=== PATIENT | female | born 1955 | race Caucasian/White ===

== ENCOUNTER → 2017-01-24 | Outpatient (CLI) | payer BC ==
--- NOTE | 2017-01-24 08:53 | BD ---
EXAMINATION TYPE: MG DEXA axial skeleton. DATE OF EXAM: 01/24/2017 COMPARISON: NONE CLINICAL HISTORY: Postmenopausal female. Height: 5 FT 6 1/2 IN Weight: 171 FRAX RISK QUESTIONS: Alcohol (3 or more units per day): NO Family History (Parent hip fracture): NO Glucocorticoids (More than 3mos): NO (Ex: prednisone, prednisolone, methylprednisolone, dexamethasone, and hydrocortisone). History of Fracture in Adulthood: NO Secondary Osteoporosis: 1. Type 1 Diabetes: NO 2. Hyperthyroidism: NO 3. Menopause before 45: NO 4. Malnutrition: NO 5. Chronic liver disease: NO Rheumatoid Arthritis: NO Current Tobacco Use: NO RISK FACTORS HISTORY OF: Active: NO Postmenopausal woman: PART HYST AGE 33 MEDICATIONS: Thyroid Medications: YES Which medication: SYNTHROID How Lon YEARS Additional Medications: SYNTHROID, TRIAMTERENE,PROBIOTIC, VIT D3, VIT B, OMEPRAZOLE, SIMVASTATIN, ASP IRIN, ALPRAZOLAM Additional History: EXAM MEASUREMENTS: Bone mineral densitometry was performed using the [employer] System. Bone mineral density as measured about the Lumbar spine is: ----- L1-L4(G/cm2): 1.079 T Score Values are as follows: ----- L2: -1.1 ----- L3: 0.0 ----- L4: -0.7 ----- L1-L4: -0.8 BASELINE Bone mineral density about the R hip (g/cm2): 0.876 Bone mineral density about the L hip (g/cm2): 0.865 T Score values are as follows: -----R Neck: -1.2 -----L Neck: -1.2 -----R Total: -0.6 -----L Total: -0.6 BASELINE IMPRESSION: OSTEOPENIA. NOTE: T-SCORE=SD OF THE YOUNG ADULT MEAN.
--- NOTE | 2017-01-26 12:18 | MM ---
Reason for exam: screening (asymptomatic). Last mammogram was performed 3 years ago. History: Patient is postmenopausal. Benign ultrasound-guided core biopsy of the left breast, March 31, 2004. Took hormonal contraceptives for 5 years beginning at age 18. Physical Findings: A clinical breast exam by your physician is recommended on an annual basis and results should be correlated with mammographic findings. MG 3D Screening Mammo W/Cad Bilateral CC and MLO view(s) were taken. Prior study comparison: February 06, 2014, right breast MG work up mamm w CAD RT. February 04, 2014, bilateral MG screening mammo w CAD. No suspicious abnormality. Post biopsy change in the left breast. No significant changes when compared with prior studies. ASSESSMENT: Benign, BI-RAD 2 RECOMMENDATION: Routine screening mammogram of both breasts in 1 year.
== END | disposition home or self-care (01) ==
LOC: RADMAMWWP 06:54
PROVIDERS: ATTEND Obstetrics & Gynecology
DX: Z12.31 Encounter for screening mammogram for malignant neoplasm of breast (principal); M85.88 Other specified disorders of bone density and structure, other site
CPT/HCPCS: 77080; 77063; G0202

== ENCOUNTER → 2017-01-27 | Outpatient (CLI) | payer BC ==
[2017-01-27 07:51] LABS: EKG EKG PERFORMED
[2017-01-27 08:02] LABS: Basophils # (A) 0.1 k/uL (0-0.2); Basophils % (A) 1 %; CH 31.8; Eosinophils # (A) 0.3 k/uL (0-0.7); Eosinophils % (A) 7 %; HDW 2.29; HGB 14.5 gm/dL (11.4-16.0); Luc # (Auto) 0.12; Luc % (Auto) 2; Lymphocytes # (A) 0.9 k/uL (1.0-4.8); Lymphocytes % (A) 18 %; MCV 93.9 fL (80.0-100.0); Monocytes # (A) 0.4 k/uL (0-1.0); Monocytes % (A) 7 %; Neutrophils # (A) 3.2 k/uL (1.3-7.7); Neutrophils % (A) 65 %; RBC 4.68 m/uL (3.80-5.40); RDW 13.6 % (11.5-15.5)
[2017-01-27 08:34] LABS: Anion Gap 9 mmol/L; Blood Urea Nitrogen 16 mg/dL (7-17); Calcium 9.3 mg/dL (8.4-10.2); Carbon Dioxide 28 mmol/L (22-30); Chloride 103 mmol/L (98-107); Glucose 66 mg/dL (74-99); Non-African American GFR(MDRD) 47 (>60 ml/min/1.73 sqM); Sodium 140 mmol/L (137-145)
== END | disposition home or self-care (01) ==
LOC: LABPAT 07:28
PROVIDERS: ATTEND Obstetrics & Gynecology
DX: Z01.810 Encounter for preprocedural cardiovascular examination (principal); Z01.812 Encounter for preprocedural laboratory examination
CPT/HCPCS: 80048; 85025; 86850; 86900; 86901; 93005

== ENCOUNTER 2017-02-07 05:55 | Observation (INO) | payer BC ==
[2017-02-01 11:21] VITALS: BMI 27.3
--- NOTE | 2017-02-06 17:31 | P.HPOB ---
History of Present Illness H&P Date: 02/06/17 Chief Complaint: Rectocele This is a 61-year-old female 4 para 3 who presents for posterior vaginal colporrhaphy secondary to rectocele. Her symptoms have gradually worsened over the last 20 years. She complains of a vaginal mass and perineal pressure along with pelvic pain, dyspareunia, and slight urinary incontinence. She denies any constipation. Her symptoms are aggravated by heavy lifting, prolonged standing, and physical activity. She would like definitive surgical treatment to repair this problem. Obstetrical history: . History of 3 vaginal deliveries. Gynecologic history: No history of sexual transmitted diseases. Social history: She is . She works full-time at an [employer]. Review of Systems Constitutional: Denies chills, Denies fever Eyes: denies blurred vision, denies pain Ears, nose, mouth and throat: Denies headache, Denies sore throat Cardiovascular: Denies chest pain, Denies shortness of breath Respiratory: Reports cough Gastrointestinal: Reports heartburn Genitourinary: Reports pelvic pain, Reports prolapse symptoms Musculoskeletal: Denies myalgias Integumentary: Denies pruritus, Denies rash Neurological: Denies numbness, Denies weakness Psychiatric: Reports anxiety, Denies depression Endocrine: Denies fatigue, Denies weight change Past Medical History Past Medical History: GERD/Reflux, Hyperlipidemia, Thyroid Disorder Additional Past Medical History / Comment(s): Tinnitus, hyperlipidemia History of Any Multi-Drug Resistant Organisms: None Reported Past Surgical History: Breast Surgery, Hysterectomy (Vaginal hysterectomy with anterior bladder suspension) Additional Past Surgical History / Comment(s): surgery for varicose veins-rt leg , left breast biopsy, D&C Past Anesthesia/Blood Transfusion Reactions: No Reported Reaction Past Psychological History: Anxiety Smoking Status: Former smoker Past Alcohol Use History: Daily (One glass of wine daily) Past Drug Use History: None Reported - Past Family History Mother Family Medical History: Cancer (Hodgkin's lymphoma) Additional Family Medical History / Comment(s): Heart disease Sister(s) Family Medical History: Deep Vein Thrombosis (DVT) Medications and Allergies Home Medications Medication Instructions Recorded Confirmed Type ALPRAZolam [Xanax] 0.25 mg PO DAILY PRN 02/01/17 02/01/17 History Aspirin [Adult Low Dose Aspirin EC] 81 mg PO DAILY 02/01/17 02/01/17 History L.acidoph,Paracasei, B.lactis 1 each PO DAILY 02/01/17 02/01/17 History [Probiotic] Levothyroxine Sodium [Synthroid] 75 mcg PO DAILY 02/01/17 02/01/17 History [facility] 1 tab PO HS 02/01/17 02/01/17 History Multivitamins, Thera [Multivitamin 1 tab PO DAILY 02/01/17 02/01/17 History (formulary)] Simvastatin [Zocor] 40 mg PO HS 02/01/17 02/01/17 History Triamterene-Hctz 37.5-25Mg 1 cap PO DAILY 02/01/17 02/01/17 History [Dyazide 37.5-25 Capsule] Allergies Allergy/AdvReac Type Severity Reaction Status Date / Time No Known Allergies Allergy Verified 02/01/17 11:08 Exam Osteopathic Statement: *. No significant issues noted on an osteopathic structural exam other than those noted in the History and Physical/Consult. HEENT: Within normal limits Heart: Regular rate and rhythm Lungs: Clear to auscultation bilaterally Abdomen: Soft, nontender Pelvic exam: Third degree rectocele is noted. No adnexal masses or tenderness are palpated. Extremities: Negative Homans Assessment and Plan (1) Rectocele Status: Acute Plan: Proceed with posterior vaginal colporrhaphy. I have discussed the risks, benefits, and alternative therapies for the above- mentioned procedure and for both sedation/anesthesia as well as necessary blood products administration, if indicated, as they pertain to this patient. The patient has indicated her understanding and acceptance of the risks and procedures discussed.
[~2017-02-07 05:55] MED LIST: DEXAMETHASONE SOD PHOSPHATE 10 MG/ML 1 ML VIAL IV ONE; HYDROmorphone 1 MG/ML 1 ML SYRINGE IVP PRN; LACTATED RINGERS 1,000 ML IV SCH; MIDAZOLAM 2 MG/2 ML VIAL IV PRN; ONDANSETRON 4 MG/2 ML VIAL IVP ONE; SCOPOLAMINE 1.5MG/72HR PATCH TRANSDERM ONE; ceFAZolin 2 GM in SODIUM CHLORIDE 0.9% 100 ML IVPB ONE
[2017-02-07] MEDS ORDERED: LACTATED RINGERS 1,000 ML IV ONE (06:11)
[2017-02-07] MEDS ORDERED: LIDOCAINE 1% 20 ML VIAL (10MG/ML) FOR IV START INTRADERMA ONE (06:11)
[2017-02-07] MEDS ORDERED: fentaNYL (PF) 50 MCG/ML 2 ML AMP ONE (07:37)
[2017-02-07] MEDS ORDERED: PROPOFOL 10 MG/ML 20 ML VIAL IV ONE (07:37)
[2017-02-07] MEDS ORDERED: MIDAZOLAM 2 MG/2 ML VIAL ONE (07:37)
[2017-02-07] MEDS ORDERED: KETOROLAC 30 MG/ML 1 ML VIAL IVP PRN (07:49)
[2017-02-07] MEDS ORDERED: ONDANSETRON 4 MG/2 ML VIAL IVP PRN ×2 (07:49→09:50)
[2017-02-07] MEDS ORDERED: NALOXONE 0.4 MG/ML 1 ML VIAL IV PRN (07:49)
[2017-02-07] MEDS ORDERED: NALBUPHINE 10 MG/ML AMPUL IV PRN (07:49)
[2017-02-07] MEDS ORDERED: diphenhydrAMINE 50 MG/ML 1 ML VIAL IVP PRN ×2 (07:49→09:50)
[2017-02-07] MEDS ORDERED: EPINEPHrine 1 MG/ML 1 ML AMP SQ ONE (07:58)
[2017-02-07] MEDS ORDERED: BACITRACIN 500 UNIT/GM OINT 28.4 GM TUBE TOPICAL ONE (07:58)
--- NOTE | 2017-02-07 08:15 | P.OP ---
Date of Procedure: 02/07/17 Preoperative Diagnosis: Rectocele Postoperative Diagnosis: Same Procedure(s) Performed: Posterior vaginal colporrhaphy Implants: Anesthesia: spinal (Duramorph) Surgeon: Shy Moulton Director Of Assessing #1: Mark Ivy Estimated Blood Loss (ml): 20 Pathology: other (vaginal mucosa) Disposition: floor Indications for Procedure: This is a 61-year-old female 4 para 3 who presents for posterior vaginal colporrhaphy secondary to rectocele. Her symptoms have gradually worsened over the last 20 years. She complains of a vaginal mass and perineal pressure along with pelvic pain, dyspareunia, and slight urinary incontinence. She denies any constipation. Her symptoms are aggravated by heavy lifting, prolonged standing, and physical activity. She would like definitive surgical treatment to repair this problem. Operative Findings: Grade 3 cystocele is noted. Evidence of previous hysterectomy and anterior repair are noted. Description of Procedure: The patient is taken to the operating room where she is placed in the dorsal lithotomy position after spinal Duramorph anesthesia is given. She is prepped and draped in the normal sterile fashion. 2 Allis clamps are used to grasp the introitus at the 4 and 8 o'clock position. Injection of 1 amp of epinephrine solution to 150 mL of normal saline was injected underneath the vaginal mucosa upwards towards the cuff. Next a triangular piece of tissue was removed with a scalpel between the 2 Allis clamps on the perineum. Next Metzenbaum scissors were used to dissect underneath the vaginal mucosa upwards towards the cuff. The rectocele was then reduced away from the vaginal meeks with sharp and blunt dissection. There was also noted to be a significant enterocele noted. Once the enterocele/rectocele was freed, it was reduced with 0 Vicryl suture in interrupted [id number] stitches along the vaginal close-up. Once this was reduced, the vaginal mucosa was trimmed. Next the vaginal mucosa was sutured with 0 Vicryl suture in a running locked fashion up to the introitus and then brought underneath the vaginal mucosa and sutured in of running fashion along the perineum and then in a subcuticular fashion on the perineal skin and then tied at the introitus. Excellent hemostasis was noted. Gomez catheter was inserted. Clear urine was noted. Vaginal packing was inserted using one-inch iodoform gauze with bacitracin ointment. All sponge and needle counts are correct and the patient is taken to recovery room in stable condition.
[2017-02-07] MEDS ORDERED: ZOLPIDEM 5 MG TAB PO PRN (09:50)
[2017-02-07] MEDS ORDERED: SIMETHICONE 80 MG CHEWABLE PO PRN (09:50)
[2017-02-07] MEDS ORDERED: Acetaminophen-Codeine 300-30mg TAB PO PRN ×2 (09:50)
[2017-02-07] MEDS ORDERED: IBUPROFEN 600 MG TAB PO PRN (09:50)
[2017-02-07] MEDS ORDERED: METOCLOPRAMIDE 5 MG/ML 2 ML VIAL IVP PRN (09:50)
[2017-02-07] MEDS ORDERED: ALPRAZolam 0.25 MG TAB PO PRN (09:50)
[2017-02-07] MEDS: LACTATED RINGERS 1,000 ML IV SCH ×2 (10:01→20:19)
[2017-02-07] MEDS: LEVOTHYROXINE 75 MCG TAB PO SCH (14:13)
[2017-02-07] MEDS: TRIAMTERENE-HCTZ 37.5-25MG 1 EACH CAP PO SCH (14:23)
[2017-02-07] MEDS: SENNOSIDES-DOCUSATE SODIUM 1 EACH TAB PO SCH ×2 (14:25→20:19)
[2017-02-07] MEDS: KETOROLAC 30 MG/ML 1 ML VIAL IVP PRN (20:30)
[2017-02-07] MEDS ORDERED: ATORVASTATIN 20 MG TAB PO SCH (21:00)
[2017-02-08] MEDS: KETOROLAC 30 MG/ML 1 ML VIAL IVP PRN (05:57)
[2017-02-08] MEDS: LACTATED RINGERS 1,000 ML IV SCH (05:57)
[2017-02-08] MEDS: LEVOTHYROXINE 75 MCG TAB PO SCH (05:58)
[2017-02-08 06:42] LABS: Basophils % (A) 0 %; CH 31.4; CHCM 34.1; Eosinophils % (A) 0 %; HCT 37.7 % (34.0-46.0); HDW 2.33; HGB 12.6 gm/dL (11.4-16.0); Luc # (Auto) 0.14; Luc % (Auto) 2; Lymphocytes # (A) 1.2 k/uL (1.0-4.8); Lymphocytes % (A) 13 %; MCH 30.9 pg (25.0-35.0); MCHC 33.4 g/dL (31.0-37.0); MCV 92.5 fL (80.0-100.0); Mean Platelet Volume 6.9; Monocytes # (A) 0.6 k/uL (0-1.0); Monocytes % (A) 7 %; Neutrophils # (A) 7.6 k/uL (1.3-7.7); Neutrophils % (A) 79 %; RBC 4.08 m/uL (3.80-5.40); RDW 13.5 % (11.5-15.5); WBC 9.7 k/uL (3.8-10.6); WBC (Perox) 9.91
[2017-02-08] MEDS ORDERED: ACETAMINOPHEN TAB 325 MG TAB PO PRN (07:38)
--- NOTE | 2017-02-08 07:49 | P.PN ---
Progress Note - Text Date: 02/08/2017 Time: 707 The patient is status post, posterior repair Vital signs stable VAS:0-10 Patient has no complaints of pain. The patient incurred some minimal itching yesterday, this itching is now subsiding. Pain meds to be managed by service.
[2017-02-08] MEDS: SENNOSIDES-DOCUSATE SODIUM 1 EACH TAB PO SCH (08:44)
[2017-02-08] MEDS: TRIAMTERENE-HCTZ 37.5-25MG 1 EACH CAP PO SCH (08:54)
--- NOTE | 2017-02-08 08:54 | P.DS ---
Providers Date of admission: 02/08/17 06:55 Expected date of discharge: 02/08/17 Attending physician: Shy Moulton Primary care physician: Romelia Beltran - Discharge Diagnosis(es) (1) Rectocele Current Visit: Yes Status: Acute Hospital Course: This is a 61-year-old female who underwent a posterior vaginal colporrhaphy on 02/07/2017. Postoperatively she is done well. She is ambulating and passing flatus. She is urinating without difficulty. Pain is well-controlled with Toradol. She is ambulating. Bleeding is minimal. Vital signs are stable. Abdomen is soft with positive bowel sounds 4. Andreina-pad shows scant serosanguineous discharge. Extremities show negative Homans. Impression is status post posterior vaginal colporrhaphy postoperative day #1. Plan is to discharge home today. Routine postoperative instructions are given. She is advised to follow up in the office in 1 week for a postoperative check. She is advised to call the office if she has any further questions or concerns prior to her appointment time. She will be given a prescription for ibuprofen 600 mg every 6 hours as needed for pain. She is encouraged to continue taking stool softeners when she goes home. Procedures: Posterior vaginal colporrhaphy on 02/07/2017 Patient Condition at Discharge: Stable Plan - Discharge Summary New Discharge Prescriptions: New Ibuprofen [Motrin] 600 mg PO Q6HR PRN #60 tab PRN Reason: Mild Discomfort Continue Aspirin [Adult Low Dose Aspirin EC] 81 mg PO DAILY ALPRAZolam [Xanax] 0.25 mg PO DAILY PRN PRN Reason: anxiety/sleep Simvastatin [Zocor] 40 mg PO HS Triamterene-Hctz 37.5-25Mg [Dyazide 37.5-25 Capsule] 1 cap PO DAILY Multivitamins, Thera [Multivitamin (formulary)] 1 tab PO DAILY L.acidoph,Paracasei, B.lactis [Probiotic] 1 cap PO DAILY Levothyroxine Sodium [Synthroid] 75 mcg PO DAILY [facility] 1 tab PO HS Discharge Medication List ALPRAZolam [Xanax] 0.25 mg PO DAILY PRN 02/01/17 [History] Aspirin [Adult Low Dose Aspirin EC] 81 mg PO DAILY 02/01/17 [History] L.acidoph,Paracasei, B.lactis [Probiotic] 1 cap PO DAILY 02/01/17 [History] Levothyroxine Sodium [Synthroid] 75 mcg PO DAILY 02/01/17 [History] [facility] 1 tab PO HS 02/01/17 [History] Multivitamins, Thera [Multivitamin (formulary)] 1 tab PO DAILY 02/01/17 [History ] Simvastatin [Zocor] 40 mg PO HS 02/01/17 [History] Triamterene-Hctz 37.5-25Mg [Dyazide 37.5-25 Capsule] 1 cap PO DAILY 02/01/17 [ History] Ibuprofen [Motrin] 600 mg PO Q6HR PRN #60 tab 02/08/17 [Rx] Follow up Appointment(s)/Referral(s): Shy Moulton DO [Doctor of Osteopathic Medicine] - 1 Week Activity/Diet/Wound Care/Special Instructions: Diet as tolerated. No heavy lifting. May shower, but no tub baths. No intercourse for 6 weeks. Discharge Disposition: HOME SELF-CARE
[2017-02-08 10:08] VITALS: BP 110/68; PULSE 73; RESP 20; TEMP 97.5
== END 2017-02-08 10:55 | disposition home or self-care (01) ==
LOC: OR 05:55 → EDSTATUS 07:30 → 6PED 08:21 → OR 02-08 06:54 → 6PED 02-08 06:55
PROVIDERS: ADMIT Obstetrics & Gynecology; ATTEND Obstetrics & Gynecology
DX: N99.3 Prolapse of vaginal vault after hysterectomy (principal); F41.9 Anxiety disorder, unspecified; I10 Essential (primary) hypertension; E07.9 Disorder of thyroid, unspecified; K21.9 Gastro-esophageal reflux disease without esophagitis; E78.5 Hyperlipidemia, unspecified; H93.19 Tinnitus, unspecified ear; Z87.891 Personal history of nicotine dependence; Z79.82 Long term (current) use of aspirin; Z79.899 Other long term (current) drug therapy
CPT/HCPCS: 57250; 85025; 88302; G0378; J2250; J0171; J1100; J0690; J2405; J3010; J1885 ×2; J2704; 86850; 86900; 86901

== ENCOUNTER → 2017-09-26 | Outpatient (CLI) | payer BC ==
--- NOTE | 2017-09-27 08:23 | US ---
EXAMINATION TYPE: US transvaginal DATE OF EXAM: 09/26/2017 COMPARISON: NONE CLINICAL HISTORY: 61-year-old female N93.9 Abnormal Vaginal Bleeding. Slight vaginal bleeding for 2 w eeks. Partial hysterectomy 30 years ago TECHNIQUE: Transvaginal (TV). Date of LMP: unknown FINDINGS: Uterus is surgically absent. Neither ovary could be visualized by transvaginal scanning probably due to combination of post menopa usal small size and positioning of the ovaries. No evident adnexal abnormality or cul-de-sac free fluid. IMPRESSION: Status post hysterectomy. Neither ovary could be visualized. No pelvic free fluid.
== END | disposition home or self-care (01) ==
LOC: RADUSWWP 16:05
PROVIDERS: ATTEND Obstetrics & Gynecology
DX: N93.9 Abnormal uterine and vaginal bleeding, unspecified (principal); Z90.710 Acquired absence of both cervix and uterus
CPT/HCPCS: 76830

== ENCOUNTER → 2018-08-22 | Outpatient (CLI) | payer BC ==
--- NOTE | 2018-08-22 14:03 | ECHOS ---
STRESS ECHOCARDIOGRAM INDICATIONS: Chest pain. MEDICATIONS: Synthroid, simvastatin, aspirin. BASELINE HEART RATE: 84 BASELINE BLOOD PRESSURE: 122/84 MAXIMUM HEART RATE: 139 MAXIMUM BLOOD PRESSURE: 134/72 85% MPHR: 133 100% MPHR: 156 METS: 7.1 MAXIMUM STAGE REACHED: 2 TOTAL EXERCISE TIME: 6:00 CLINICAL INFORMATION: Patient was exercised for a total period of 6 minutes, a peak heart rate of 139 was achieved. Maximum blood pressure of 134/72 mmHg was noted. Resting EKG shows normal sinus rhythm with normal [place] interval and QRS duration and normal ST-T waves. During exercise J-point depression with upsloping ST segments are noted. The baseline echocardiographic images reveals normal left ventricular chamber size with normal left ventricular systolic function in the immediate postexercise period. Normal increase in the wall thickness and contractility is noted. FINAL IMPRESSION: 1. This stress echocardiographic study is negative for stress-induced ischemia. 2. Patient's exercise tolerance is average. 3. Patient did not complain of any anginal pain during the test. 4. EKG portion of the stress test shows equivocal upsloping ST-segment changes which are not definitely diagnostic of ischemia. MMODL / IJN: [id number] /
== END | disposition home or self-care (01) ==
LOC: RADNMMAIN 09:40
PROVIDERS: ATTEND Family Medicine
DX: R07.89 Other chest pain (principal)
CPT/HCPCS: 93351

== ENCOUNTER → 2018-08-22 | Outpatient (CLI) | payer BC ==
[2018-08-22 09:26] LABS: Basophils # (A) 0.1 k/uL (0-0.2); Basophils % (A) 1 %; Eosinophils # (A) 0.2 k/uL (0-0.7); Eosinophils % (A) 4 %; HCT 43.1 % (34.0-46.0); Lymphocytes # (A) 0.9 k/uL (1.0-4.8); Lymphocytes % (A) 17 %; MCH 30.5 pg (25.0-35.0); MCHC 32.5 g/dL (31.0-37.0); Mean Platelet Volume 6.6; Monocytes # (A) 0.4 k/uL (0-1.0); Monocytes % (A) 8 %; Neutrophils # (A) 3.6 k/uL (1.3-7.7); Neutrophils % (A) 67 %; Platelet Count 355 k/uL (150-450); RBC 4.59 m/uL (3.80-5.40); RDW 13.5 % (11.5-15.5); WBC 5.3 k/uL (3.8-10.6)
[2018-08-22 18:31] LABS: Albumin 4.3 g/dL (3.80-4.90); Albumin/Globulin Ratio 2.39 (1.60-3.17); Anion Gap 6.7 mmol/L (4.00-12.00); Calcium 9.6 mg/dL (8.7-10.3); Carbon Dioxide 30.3 mmol/L (21.6-31.8); Globulin 1.8 g/dL (1.6-3.3); Potassium 4.4 mmol/L (3.5-5.5); Total Bilirubin 0.4 mg/dL (0.3-1.2); Total Protein 6.1 g/dL (6.2-8.2)
== END | disposition home or self-care (01) ==
LOC: LABWHC1 08:37
PROVIDERS: ATTEND Family Medicine
DX: Z00.00 Encounter for general adult medical examination without abnormal findings (principal); E03.9 Hypothyroidism, unspecified; I10 Essential (primary) hypertension; Z11.59 Encounter for screening for other viral diseases
CPT/HCPCS: 36415; 80053; 80061; 82550; 83036; 84443; 85025; 86803

== ENCOUNTER → 2018-09-12 | Outpatient (CLI) | payer BC ==
--- NOTE | 2018-09-13 12:10 | MM ---
Reason for exam: screening (asymptomatic). Last mammogram was performed 1 year and 8 months ago. History: Patient is postmenopausal. Benign ultrasound-guided core biopsy of the left breast, March 31, 2004. Took hormonal contraceptives for 5 years beginning at age 18. Physical Findings: A clinical breast exam by your physician is recommended on an annual basis and results should be correlated with mammographic findings. MG 3D Screening Mammo W/Cad Bilateral CC and MLO view(s) were taken. Prior study comparison: January 24, 2017, bilateral MG 3d screening mammo w/cad. February 06, 2014, right breast MG work up mamm w CAD RT. The breast tissue is heterogeneously dense. This may lower the sensitivity of mammography. There is no discrete abnormality. No significant changes when compared with prior studies. ASSESSMENT: Negative, BI-RAD 1 RECOMMENDATION: Routine screening mammogram of both breasts in 1 year.
== END | disposition home or self-care (01) ==
LOC: RADMAMWWP 11:46
PROVIDERS: ATTEND Family Medicine
DX: Z12.31 Encounter for screening mammogram for malignant neoplasm of breast (principal)
CPT/HCPCS: 77063; 77067

== ENCOUNTER → 2020-02-13 | Outpatient (CLI) | payer MEDICARE ==
--- NOTE | 2020-02-17 09:08 | MM ---
Reason for exam: screening (asymptomatic). Last mammogram was performed 1 year and 5 months ago. History: Patient is postmenopausal. Benign ultrasound-guided core biopsy of the left breast, March 31, 2004. Took hormonal contraceptives for 5 years beginning at age 18. Physical Findings: A clinical breast exam by your physician is recommended on an annual basis and results should be correlated with mammographic findings. MG 3D Screening Mammo W/Cad Bilateral CC and MLO view(s) were taken. Prior study comparison: September 12, 2018, bilateral MG 3d screening mammo w/cad. January 24, 2017, bilateral MG 3d screening mammo w/cad. The breast tissue is heterogeneously dense. This may lower the sensitivity of mammography. Previous mammotome biopsy in the left breast. No significant changes when compared with prior studies. ASSESSMENT: Benign, BI-RAD 2 RECOMMENDATION: Routine screening mammogram of both breasts in 1 year.
== END | disposition home or self-care (01) ==
LOC: RADMAMWWP 07:14
PROVIDERS: ATTEND Family Medicine
DX: Z12.31 Encounter for screening mammogram for malignant neoplasm of breast (principal)
CPT/HCPCS: 77063; 77067

== ENCOUNTER → 2020-06-18 | Outpatient (CLI) | payer MEDICARE ==
--- NOTE | 2020-06-18 15:26 | US ---
EXAMINATION TYPE: US thyroid st tissue head/neck DATE OF EXAM: 06/18/2020 COMPARISON: NONE CLINICAL HISTORY: E03.9 hypothyroidism. Pt states abnormal labs, pt on thyroid meds x 7-8 yrs GLAND SIZE: Right Lobe: 4.7 x 1.7 x 1.9 cm Overall Parenchyma: heterogenous Left Lobe: 4.0 x 1.4 x 1.6 cm Overall Parenchyma: heterogeneous Isthmus Thickness: 0.3 cm Bilateral neck scanned, no evidence of lymphadenopathy. Heterogeneous gland bilaterally. IMPRESSION: 1. No suspicious nodules and a mildly heterogenous thyroid
== END | disposition home or self-care (01) ==
LOC: RADUSWWP 14:43
PROVIDERS: ATTEND Family Medicine
DX: E03.9 Hypothyroidism, unspecified (principal)
CPT/HCPCS: 76536

== ENCOUNTER → 2020-09-02 | Outpatient (CLI) | payer MEDICARE ==
--- NOTE | 2020-09-02 11:24 | US ---
EXAMINATION TYPE: US kidneys/renal and bladder DATE OF EXAM: 09/02/2020 COMPARISON: NONE CLINICAL HISTORY: N18.3 Chronic kidney disease stage III. abnormal labs. No pain. EXAM MEASUREMENTS: Right Kidney: 10.6 x 4.4 x 4.9 cm Left Kidney: 11.3 x 4.7 x 5.3 cm Right Kidney: Appears echogenic in appearance. Prominent pyramids seen. Left Kidney: Prominent pyramids seen. Bladder: distended, anechoic Bilateral Jets seen There is no evidence for hydronephrosis at this point in time. No nephrolithiasis is seen. No kanchan s are identified. The urinary bladder is anechoic. Bilateral ureteral jets are seen. IMPRESSION: Correlate for medical renal disease.
== END | disposition home or self-care (01) ==
LOC: RADUSWWP 10:14
PROVIDERS: ATTEND Internal Medicine Nephrology
DX: N18.30 Chronic kidney disease, stage 3 unspecified (principal)
CPT/HCPCS: 76770

== ENCOUNTER → 2021-03-10 | Outpatient (CLI) | payer MEDICARE ==
--- NOTE | 2021-03-10 13:10 | BD ---
EXAMINATION TYPE: Axial Bone Density DATE OF EXAM: 03/10/2021 COMPARISON: 01.24.2017 CLINICAL HISTORY: 65 YR OLD FEMALE......ICD-10 CODE: N95.1 POST MENOPAUSAL Height: Weight: FRAX RISK QUESTIONS: NOTHING TO NOTE HERE RISK FACTORS HISTORY OF: Postmenopausal woman: YES, AT ABOUT AGE 53 YRS OLD Hyperparathyroidism: NO Adrenal Insufficiency: NO MEDICATIONS: Thyroid Medications: YES, SYNTHROID FOR ABOUT 15 YRS Additional Medications: XANAX PRN, REFLUX MEDS, STATIN FOR CHOLESTEROL, DAILY MULTIVITAMIN Additional History: ANXIETY, REFLUX, CHOLESTEROL EXAM MEASUREMENTS: Bone mineral densitometry was performed using the [employer] System. Bone mineral density as measured about the Lumbar spine is: ----- L1-L4(G/cm2): 1.079 T Score Values are as follows: ----- L1: -1.9 ----- L2: -1.0 ----- L3: -0.1 ----- L4: -0.6 ----- L1-L4: -0.8 Bone mineral density has: Increased 0.6% since study of: 01.24.2017 Bone mineral density about the R hip (g/cm2): 0.902 Bone mineral density about the L hip (g/cm2): 0.872 T Score values are as follows: -----R Neck: -1.2 -----L Neck: -1.4 -----R Total: -0.8 -----L Total: -1.1 Bone mineral density has: Decreased -4.3% since study of: 01.24.2017 FRAX%s: THERE IS A 9.3% CHANCE FOR A MAJOR OSTEOPOROTIC FX AND A 1.1% FOR HIP......PROBABILITY FOR FX IN 10 YRS TIME IMPRESSION: Osteopenia (T Score between -2.5 and -1). There is slightly increased risk of fracture and the patient may be considered for treatment. Re-Screen 2-5 years. NOTE: T-SCORE=SD OF THE YOUNG ADULT MEAN.
== END | disposition home or self-care (01) ==
LOC: RADBDWWP 07:06
PROVIDERS: ATTEND Obstetrics & Gynecology
DX: M85.89 Other specified disorders of bone density and structure, multiple sites (principal); Z78.0 Asymptomatic menopausal state
CPT/HCPCS: 77080

== ENCOUNTER → 2021-04-08 | Outpatient (CLI) | payer MEDICARE ==
--- NOTE | 2021-04-08 13:36 | MM ---
Reason for exam: screening (asymptomatic). Last mammogram was performed 1 year and 2 months ago. History: Patient is postmenopausal. Benign ultrasound-guided core biopsy of the left breast, March 31, 2004. Took hormonal contraceptives for 5 years beginning at age 18. Physical Findings: A clinical breast exam by your physician is recommended on an annual basis and results should be correlated with mammographic findings. MG 3D Screening Mammo W/Cad Bilateral CC and MLO view(s) were taken. Prior study comparison: February 13, 2020, bilateral MG 3d screening mammo w/cad. September 12, 2018, bilateral MG 3d screening mammo w/cad. The breast tissue is heterogeneously dense. This may lower the sensitivity of mammography. Previous mammotome biopsy in the left breast. There is chronic nodularity in the left breast. There is no discrete abnormality. ASSESSMENT: Benign, BI-RAD 2 RECOMMENDATION: Routine screening mammogram of both breasts in 1 year.
== END | disposition home or self-care (01) ==
LOC: RADMAMWWP 07:38
PROVIDERS: ATTEND Obstetrics & Gynecology
DX: Z12.31 Encounter for screening mammogram for malignant neoplasm of breast (principal); Z78.0 Asymptomatic menopausal state
CPT/HCPCS: 77063; 77067

== ENCOUNTER → 2022-04-11 | Outpatient (CLI) | payer MEDICARE ==
--- NOTE | 2022-04-11 14:05 | MM ---
Reason for Exam: Screening (asymptomatic). Last screening mammogram was performed 12 month(s) ago. Patient History: Menarche at age 10. First Full-Term at age 24. Hysterectomy at age 33. Postmenopausal. Hormonal Contraceptives for 5 years from age 18 until age 23. 03/31/2004, Benign Ultrasound-Guided Core Biopsy on the left side. Risk Values: Alta 5 year model risk: 2.2%. NCI Lifetime model risk: 7.2%. Prior Study Comparison: 09/12/2018 Bilateral Screening Mammogram, [facility]. 02/13/2020 Bilateral Screening Mammogram, [facility]. 04/08/2021 Bilateral Screening Mammogram, [facility]. Tissue Density: The breast tissue is heterogeneously dense. This may lower the sensitivity of mammography. Findings: Analyzed By CAD. Mammotome biopsy clip left breast is redemonstrated. Benign-appearing bilateral axillary lymph nodes are again seen. A few small scattered benign-appearing round calcifications bilaterally are redemonstrated. A cluster of small well-defined masses in the left breast upper aspect are stable. There is no suspicious new group of microcalcifications or new distortion in either breast. Overall Assessment: Benign, BI-RAD 2 Management: Screening Mammogram of both breasts in 1 year. A clinical breast exam by your physician is recommended on an annual basis and results should be correlated with mammographic findings. Electronically signed and approved by: Irineo Ham M.D.
== END | disposition home or self-care (01) ==
LOC: RADMAMWWP 07:28
PROVIDERS: ATTEND Obstetrics & Gynecology
DX: Z12.31 Encounter for screening mammogram for malignant neoplasm of breast (principal)
CPT/HCPCS: 77063; 77067

== ENCOUNTER → 2023-05-16 | Outpatient (CLI) | payer MEDICARE ==
--- NOTE | 2023-05-17 16:59 | MM ---
Reason for Exam: Screening (asymptomatic). Last mammogram was performed 1 year(s) and 1 month(s) ago. Patient History: Menarche at age 10. First Full-Term at age 24. Hysterectomy at age 33. Postmenopausal. Patient has history of breast feeding. Hormonal Contraceptives for 5 years from age 18 until age 23. 03/31/2004, Benign Ultrasound-Guided Core Biopsy on the left side. Risk Values: Alta 5 year model risk: 2.3%. NCI Lifetime model risk: 6.9%. Prior Study Comparison: 02/13/2020 Bilateral Screening Mammogram, [facility]. 04/08/2021 Bilateral Screening Mammogram, [facility]. 04/11/2022 Bilateral MG 3D screening mammo w/cad, [facility]. Tissue Density: There are scattered fibroglandular densities. Findings: Analyzed By CAD. Microclip left breast from prior biopsy. Additional chronic nodularity lateral left breast. There is no suspicious group of microcalcifications or new suspicious mass in either breast. Overall Assessment: Benign, BI-RAD 2 Management: Screening Mammogram of both breasts in 1 year. . Patient should continue monthly self-breast exams. A clinical breast exam by your physician is recommended on an annual basis. This exam should not preclude additional follow-up of suspicious palpable abnormalities. Note on Alta scores and lifetime risk: 1. A Alta score greater than 3% is considered moderate risk. If this is the case, consider specialist referral to assess eligibility for a risk reducing agent. 2. If overall lifetime risk for the development of breast cancer is 20% or higher, the patient may qualify for future screening with alternating mammogram and breast MRI. Electronically signed and approved by: Tito Smith M.D. Radiologist
== END | disposition home or self-care (01) ==
LOC: RADMAMWWP 08:51
PROVIDERS: ATTEND Obstetrics & Gynecology
DX: Z12.31 Encounter for screening mammogram for malignant neoplasm of breast (principal); Z78.0 Asymptomatic menopausal state
CPT/HCPCS: 77063; 77067

== ENCOUNTER → 2024-06-17 | Outpatient (CLI) | payer MEDICARE ==
--- NOTE | 2024-06-17 07:58 | MM ---
Reason for Exam: Screening (asymptomatic). Last mammogram was performed 1 year(s) and 1 month(s) ago. Patient History: Menarche at age 10. First Full-Term at age 24. Hysterectomy at age 33. Postmenopausal. Patient has history of breast feeding. Hormonal Contraceptives for 5 years from age 18 until age 23. 03/31/2004, Benign Ultrasound-Guided Core Biopsy on the left side. Risk Values: Alta 5 year model risk: 2.3%. NCI Lifetime model risk: 6.6%. Prior Study Comparison: 04/08/2021 Bilateral Screening Mammogram, [facility]. 04/11/2022 Bilateral MG 3D screening mammo w/cad, [facility]. 05/16/2023 Bilateral MG 3D screening mammo w/cad, [facility]. Tissue Density: There are scattered areas of fibroglandular density. Findings: Analyzed By CAD. Microclip left breast from prior biopsy. Chronic nodularity lateral left breast. There is no suspicious group of microcalcifications or new suspicious mass in either breast. Overall Assessment: Benign, BI-RAD 2 Management: Screening Mammogram of both breasts in 1 year. . Patient should continue monthly self-breast exams. A clinical breast exam by your physician is recommended on an annual basis. This exam should not preclude additional follow-up of suspicious palpable abnormalities. Note on Alta scores and lifetime risk: 1. A Alta score greater than 3% is considered moderate risk. If this is the case, consider specialist referral to assess eligibility for a risk reducing agent. 2. If overall lifetime risk for the development of breast cancer is 20% or higher, the patient may qualify for future screening with alternating mammogram and breast MRI. [facility], , 06/17/2024 7:55 AM. Electronically signed and approved by: Tito Smith M.D. Radiologist
== END | disposition home or self-care (01) ==
LOC: RADMAMWWP 07:01
PROVIDERS: ATTEND Family Medicine
DX: Z12.31 Encounter for screening mammogram for malignant neoplasm of breast (principal); R92.323 Mammographic fibroglandular density, bilateral breasts; Z78.0 Asymptomatic menopausal state
CPT/HCPCS: 77063; 77067